=== PATIENT | male | born 1955 | race Caucasian/White ===

== ENCOUNTER 2017-08-25 12:24 | Emergency (ER) | payer OTHER ==
[~2017-08-25 12:24] MED LIST: DULOXETINE HCL60 MG PO; TRAZODONE100 MG PO; TYLENOL TAB 32325 MG PO
--- NOTE | 2017-08-25 14:09 | ED PSYCHIATRIC COMPLAINT ---
History of Present Illness General Chief Complaint: Psychiatric Related Complaint Stated Complaint: SENT BY FOR EVAL OF ANXIETY Source: patient, old records Exam Limitations: no limitations Vital Signs & Intake/Output Vital Signs & Intake/Output Vital Signs Date Time Temp Pulse Resp B/P B/P Pulse O2 O2 Flow FiO2 Mean Ox Delivery Rate 08/25 1842 97.3 63 63 129/65 96 08/25 1330 97 Room Air Room Air 08/25 1237 97.4 84 20 151/87 98 Allergies Coded Allergies: NO KNOWN ALLERGIES (09/19/14) Reconcile Medications Duloxetine HCl 60 MG CAPSULE.DR Owen CAP PO DAILY DEPRESSION (Reported) Triage Note: PER PT HX OF ANXIETY X 5 YRS EPISODES MORE FREQ AND LASTING LONGER DENIES SI/HI OR ANY DRUG USE BUT STOPPED DRINKING 4 MONTHS AGO Triage Nurses Notes Reviewed? yes Onset: Last week Duration: day(s):, constant, continues in ED, getting worse Timing: recent history Severity: moderate, severe Associated Symptoms: anxiety, impaired concentration, insomnia HPI: 5 days prior to admission patient complains of increased panic anxiety depression and insomnia anorexia anhedonia and diarrhea. He denies fever chills nausea vomiting diarrhea abdominal pain chest pain shortness breath headache dysuria rash bleeding suicidal ideation homicidal ideation hallucination. His mental health provider is retired and has not found replacement. (Sergey Galicia MD) Past History Travel History Traveled to [place] past 21 day No Medical History Any Pertinent Medical History? 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 paternal aunt (brain tumor). Hx Contributory? No (Sergey Galicia MD) Review of Systems Review of Systems Constitutional: Reports: see HPI, malaise. EENTM: Reports: no symptoms. Respiratory: Reports: no symptoms. Cardiovascular: Reports: no symptoms. GI: Reports: see HPI, diarrhea. Genitourinary: Reports: no symptoms. Musculoskeletal: Reports: no symptoms. Skin: Reports: no symptoms. Neurological/Psychological: Reports: see HPI, anxiety, confusion, depressed. Hematologic/Endocrine: Reports: no symptoms. Immunologic/Allergic: Reports: no symptoms. All Other Systems: Reviewed and Negative (Sergey Galicia MD) Physical Exam Physical Exam General Appearance: well developed/nourished, alert, awake, anxious, mild distress Head: atraumatic, normal appearance Eyes: Bilateral: EOMI. Ears, Nose, Throat: normal pharynx, normal ENT inspection, hearing grossly normal Neck: normal inspection, supple Respiratory: normal breath sounds Cardiovascular: regular rate/rhythm Gastrointestinal: soft, non-tender Extremities: normal range of motion Neurological/Psychiatric: no motor/sensory deficits, awake, alert, anxious, psychologist industrial organizational II-XII nml as tested, oriented x 3 Appearance/Memory/Insight: disheveled, impaired insight Behavoir/Eye Contact/Speech: cooperative, normal speech Thoughts/Hallucinations: no apparent hallucination Skin: intact, normal color, warm/dry SAD PERSONS Done? patient not suicidal (Sergey Galicia MD) Progress Differential Diagnosis: drug intoxication, drug overdose, drug withdrawal, electrolyte abnormality Plan of Care: Orders Procedure Date/time Status URINE DRUG SCREEN FOR ER ONLY 08/25 1358 Complete TSH REFLEX 08/25 1358 Complete ETHANOL 08/25 1358 Complete COMPREHENSIVE METABOLIC PANEL 08/25 1358 Complete CBC WITHOUT DIFFERENTIAL 08/25 1358 Complete ED CRISIS PSYCH CONSULT 08/25 1358 Active Laboratory Tests 08/25/17 1406: Anion Gap 9, Estimated GFR > 60, BUN/Creatinine Ratio 15.0, Glucose 102 H, Calcium 9.5, Total Bilirubin 0.4, AST 18, ALT 18 L, Alkaline Phosphatase 38, Total Protein 7.5, Albumin 4.5, Globulin 3.0, Albumin/Globulin Ratio 1.5, TSH & T3 &Free T4 Intrp 1.190, CBC w Diff NO MAN DIFF REQ, RBC 5.26, MCV 92.0, MCH 31.2 H, MCHC 33.9, RDW 13.1, MPV 8.8, Gran % 51.8, Lymphocytes % 28.7, Monocytes % 8.7, Eosinophils % 9.5 H, Basophils % 1.3, Absolute Granulocytes 3.5, Absolute Lymphocytes 1.9, Absolute Monocytes 0.6, Absolute Eosinophils 0.6, Absolute Basophils 0.1, Serum Alcohol < 10.0 08/25/17 1402: Urine Opiates Screen < 100, Methadone Screen 63, Barbiturate Screen < 60, Ur Phencyclidine Scrn < 6.00, Amphetamines Screen < 100, U Benzodiazepines Scrn < 85, Urine Cocaine Screen < 50, Urine Cannabis Screen < 5.00 Hand-Off Endorsed To: Jack Ramírez MD Endorsed Time: 1500 Pending: consult, labs (Sergey Galicia MD) Comments: 08/25/2017 3:10:19 PM patient signed out to me by Dr. 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 08/25/2017 7:54:56 PM according to patient's RN, he has been cleared for outpatient management by crisis. (Jack Ramírez MD) Departure Departure Condition: Stable Clinical Impression Primary Impression: Generalized anxiety disorder Referrals: Denny Headley MD (PCP/Family) Departure Forms: Customer Survey General Discharge Information (Sergey Galicia MD) Departure Disposition: HOME OR SELF CARE Additional Instructions: Follow-up as outlined by the aircraft cleaner. Notify your primary care physician of this emergency department visit and treatment plan. Return if any concerns or sudden worsening. Please note that there might be incidental findings in your evaluation that are unrelated to the current emergency department visit. Please notify your primary care doctor about this emergency department visit in order to obtain and review all of the testing performed so that these incidental findings can be monitored as needed. If you had an x-ray performed, please understand that some fractures or other findings may not be seen on the initial set of x-rays. If your symptoms persist you might need a repeat set of x-rays to check for such a fracture. If you had a laceration evaluated, please understand that foreign bodies such as glass or wood may not be visible to the naked eye or on plain x-rays. If the wound becomes red, swollen, increasingly more painful or if there is any drainage from the wound, please have it reevaluated by a physician for the possibility of a retained foreign body. If you're unable to follow up as outlined in the discharge instructions please return to the emergency department. Thank you for choosing the [facility] Emergency Department for your care. It was a pleasure to serve you today. Jack Ramírez M.D. [facility] (Desiree OCAMPO,Jack Glover)
[2017-08-25 14:12] LABS: ABSOLUTE BASOPHIL COUNT 0.1 /CUMM (0.0-0.2); ABSOLUTE EOSINOPHIL COUNT 0.6 /CUMM (0.0-0.7); ABSOLUTE GRANULOCYTE CT 3.5 /CUMM (1.4-6.5); ABSOLUTE LYMPH COUNT 1.9 /CUMM (1.2-3.4); ABSOLUTE MONOCYTE COUNT 0.6 /CUMM (0.10-0.60); BASOPHIL % 1.3 % (0.0-2.0); EOSINOPHIL % 9.5 % (0-5); GRANULOCYTE % 51.8 % (42.2-75.2); HEMATOCRIT 48.4 % (42-52); MEAN CORPUSCULAR HGB 31.2 PG (27.0-31.0); MEAN CORPUSCULAR HGB CONC 33.9 G/DL (33.0-37.0); MEAN PLATELET VOLUME 8.8 FL (7.4-10.4); PLATELET COUNT 188 /CUMM (130-400); RBC DISTRIBUTION WIDTH 13.1 % (11.5-14.5); RED BLOOD CELL CT 5.26 /CUMM (4.70-6.10); WHITE BLOOD CELL COUNT 6.8 /CUMM (4.8-10.8)
[2017-08-25 18:42] VITALS: BP 129/65
--- NOTE | 2017-08-25 18:47 | ED PSYCH CRISIS CONSULTATION ---
See Addendum Crisis Consult Basic Assessment Date of Consult: 08/25/17 Responsible Person/Accompanied By: , Tasia Insurance Authorization: Insurance #1: Insurance name: GARRY Phone number: Policy number: [id number] Group [id number] Authorization number: ED Provider: Patient's ED Provider: Sergey Galicia MD Primary Care Physician: Patient's PCP: Denny Headley MD PCP's Current Psychiatrist: Katelynn Pat MD Chief Complaint: Psychiatric Related Complaint Patient's Quote: "I started having panic attacks" Present Illness: Patient is a 61 year old, , male who arrived to the ED with his , Tasia due to worsening anxiety and depression. He states "It's recently getting more intense and frequent" and is unable to work. He is currently employed at [employer] in [place] and has worked there for 26 years. He reports an increase in work stressors and states "I haven't been to work since Thursday." He states he spoke with his clean up supervisor about his current symptoms and unsure if they will be understanding. He reports a history of alcohol use disorder, drinking 6 beers per night for the past 5 years. 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 After this, he states his gave him an ultimatum, so patient stopped drinking and has attended 12 step meetings daily and obtained a sponsor. He reports cravings for alcohol "when I'm anxious." He states he would use alcohol to prevent anxiety from worsening. Patient identifies work stress, family stress, and financial stress ("I may lose my house"). He has been to his , Tasia, for 18 years and they have 3 adult children who reside in their home. He states his is disabled and has been sober for 2 years. Tasia reports that patient is depressed and he has been sleeping most of the day, his appetite decreased and she is concerned. She does not believe patient is suicidal or homicidal and denies concerns. Patient denies access to weapons. Patient denies AH/VH. Case was reviewed with Katelynn Pat MD. Patient does not appear to be a risk to himself or others and is in agreement with the recommendation for intensive outpatient to help patient learn coping skills to manage symptoms and prevent relapse. Patient is scheduled an intake appointment at [facility] on , at 2:00 pm. The C-SSRS was completed. Risk factors include a previous psychiatric treatment and protective factors include his family. Patient's Address: [address] [place] [address] [place] [address] [place] Other Phone Number: Who Do You Live With? Patient and family Family/Informants Interviewed: Allergies - Coded Allergies: NO KNOWN ALLERGIES (09/19/14) Current Medications - Scheduled Medications Duloxetine HCl 60 MG CAPSULE.DR Owen CAP PO DAILY DEPRESSION (Reported) [facility]14 0016 Last Taken: At an unknown date and time Laboratory Results: Laboratory Tests 08/25/17 1406: Anion Gap 9, Estimated GFR > 60, BUN/Creatinine Ratio 15.0, Glucose 102 H, Calcium 9.5, Total Bilirubin 0.4, AST 18, ALT 18 L, Alkaline Phosphatase 38, Total Protein 7.5, Albumin 4.5, Globulin 3.0, Albumin/Globulin Ratio 1.5, TSH & T3 &Free T4 Intrp 1.190, CBC w Diff NO MAN DIFF REQ, RBC 5.26, MCV 92.0, MCH 31.2 H, MCHC 33.9, RDW 13.1, MPV 8.8, Gran % 51.8, Lymphocytes % 28.7, Monocytes % 8.7, Eosinophils % 9.5 H, Basophils % 1.3, Absolute Granulocytes 3.5, Absolute Lymphocytes 1.9, Absolute Monocytes 0.6, Absolute Eosinophils 0.6, Absolute Basophils 0.1, Serum Alcohol < 10.0 08/25/17 1402: Urine Opiates Screen < 100, Methadone Screen 63, Barbiturate Screen < 60, Ur Phencyclidine Scrn < 6.00, Amphetamines Screen < 100, U Benzodiazepines Scrn < 85, Urine Cocaine Screen < 50, Urine Cannabis Screen < 5.00 Past History Past Medical History Neurological: NONE EENT: 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, RIGHT EYE RETINAL DETACHMENT, CORNEAL TRANSPLANT Cardiovascular: NONE Respiratory: NONE Gastrointestinal: NONE Hepatic: NONE Renal: NONE Musculoskeletal: NONE Psychiatric: depression Endocrine: NONE Blood Disorders: NONE Cancer(s): NONE 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 Diagnosis by History: Unknown Substance Use/Abuse History Drug Use/Abuse Substances Used/Abused Yes Substance Used/Abused Alcohol First Use 19 years old Last Used 4 months ago How much used/taken 6 beers per day How often daily For how long 5 years Route of use oral Substance Abuse Treatment Substance Abuse Treatment Past Substance Abuse [place] No Inpatient Treatment No Outpatient Treatment No Location of Treatment N/A Reason for Treatment N/A Dates of Treatment N/A Response to Treatment N/A Comments: N/A Current Mental Status Mental Status Orientation: Person, Place, Situation Affect: Anxious Speech: Soft Neuro-vegetative: Appetite Decreased, Loss of Interest, Sleep Disturbance Appearance Appearance- Dress/Hygiene: Patient appears stated age and dressed in hospital scrubs Behaviors Thought Process: WNL Thought Content: WNL Memory: WNL Insight: Fair SI/HI Risk Assessment Past Suicidal Ideation/Attempts No Current Suicidal Ideation/Att No Past Homicidal Ideation/Att: No Current Homicidal Ideation/Attempts No Degree of Intent: None Gravely Disabled: Poor Impulse Control Risk Factors: high anxiety/distress, substance abuse, male Lethality Ratin (mild) PTSD Checklist PTSD Done? 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 Pace Amen Date Disposition Established: 08/25/17 Time Disposition Established: 1800 Plan for Disposition - Modality: IOP Facility: [facility] Follow-up Appt Date: 08/27/17 Follow-Up Appt Time: 1400 Contact: Wanda Sellers LCSW Rationale for Disposition: Patient denies SI/HI. He reports a history of alcohol use disorder and recently stopped using alcohol 4 months ago. He reports high anxiety, recent panic attacks and a depressed mood. Patient agrees to an [facility] level of care to lean coping skills to manage symptoms and learn skills to prevent relapse. Referrals Denny Headley MD (PCP/Family)
== END 2017-08-25 20:04 ==
LOC: ERH 12:24
PROVIDERS: Emergency Medicine
DX: F41.1 Generalized anxiety disorder (principal); F10.10 Alcohol abuse, uncomplicated
CPT/HCPCS: 80307; G0463; G0480